=== PATIENT | female | born 1985 | race Caucasian/White ===

== ENCOUNTER 2017-08-10 11:05 | Emergency (ER) | payer OTHER ==
[2017-08-10 12:16] VITALS: BP 115/69
[2017-08-10] MEDS: Ondansetron ODT TAB* 4 MG PO ONE ×2 (12:44→12:45)
--- NOTE | 2017-08-10 13:08 | UC ---
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 B no UTI symptoms HX-c-s, btl - History of Current Complaint Chief Complaint: UCGeneralIllness Stated Complaint: VOMITING,CHILLS,COUGH Time Seen by Provider: 08/10/17 12:28 Hx Obtained From: Patient Hx Last Menstrual Period: 07/20/17 Onset/Duration: Gradual Onset Severity Initially: Moderate Severity Currently: Moderate Pain Intensity: 4 Pain Scale Used: 0-10 Numeric Location: Diffuse Character: Cramping Aggravating Factor(s): Movement Alleviating Factor(s): Vomiting Associated Signs and Symptoms: Positive: Fever, Cough, Nausea, Vomiting, Diarrhea Allergies/Adverse Reactions: Allergies Allergy/AdvReac Type Severity Reaction Status Date / Time No Known Allergies Allergy Verified 08/10/17 12:10 PMH/Surg Hx/FS Hx/Imm Hx Previously Healthy: Yes - Surgical History Surgical History: Yes Surgery Procedure, Year, and Place: 2007. 2014. OVARIAN CYST REMOVAL AND D&C - Family History Known Family History: Negative: Cardiac Disease, Hypertension, Diabetes - Social History Alcohol Use: None Substance Use Type: None Smoking Status (MU): Never Smoked Tobacco - Immunization History Most Recent Influenza Vaccination: 2013 Review of Systems Constitutional: Fever, Chills Skin: Negative Eyes: Negative ENT: Negative Respiratory: Cough Cardiovascular: Negative Gastrointestinal: Abdominal Pain, Vomiting, Diarrhea Genitourinary: Negative Motor: Negative Neurovascular: Negative Musculoskeletal: Negative Neurological: Negative Psychological: Negative Is Patient Immunocompromised?: No All Other Systems Reviewed And Are Negative: Yes Physical Exam Triage Information Reviewed: Yes Appearance: Well-Appearing, No Pain Distress, Well-Nourished Vital Signs: Initial Vital Signs Temp 97.7 F 08/10/17 12:11 Pulse 81 08/10/17 12:11 Resp 14 08/10/17 12:11 BP 115/69 08/10/17 12:11 Pulse Ox 97 08/10/17 12:11 Vital Signs Reviewed: Yes Eyes: Positive: Conjunctiva Clear ENT: Positive: Pharynx normal, Uvula midline. Negative: Nasal congestion, Nasal drainage, Tonsillar swelling, Tonsillar exudate Neck: Positive: Supple, Nontender, No Lymphadenopathy Respiratory: Positive: Lungs clear, Normal breath sounds, No respiratory distress, No accessory muscle use Cardiovascular: Positive: RRR, No Murmur, Pulses Normal Abdomen Description: Positive: Nontender, Soft Neurological: Positive: Alert Psychological Exam: Normal Skin Exam: Normal Abd Pain Female Course/Dx - Course Course Of Treatment: flu (-) - Differential Dx/Diagnosis Provider Diagnoses: acute gastroenteritis Discharge - Discharge Plan Condition: Stable Disposition: HOME Prescriptions: Ondansetron TAB* [Zofran Tab*] 4 mg PO Q6H PRN #10 tab PRN Reason: Nausea Patient Education Materials: Gastroenteritis (ED) Forms: *Work Release Referrals: No Primary Care Phys,NOPCP [Primary Care Provider] - Additional Instructions: immodium AD zofran as directed to er if not improving later today or tomorrow bring in stool for studies
== END 2017-08-10 13:24 | disposition home or self-care (01) ==
LOC: UCEAST 11:05
DX: K52.9 Noninfective gastroenteritis and colitis, unspecified (principal); R50.9 Fever, unspecified; R05 Cough
CPT/HCPCS: 87502; 99212; A9270-GY; G0463

== ENCOUNTER 2018-12-20 07:36 | Emergency (ER) | payer OTHER ==
[2018-12-20 07:49] VITALS: BP 127/77
--- NOTE | 2018-12-20 08:34 | UC ---
Back Pain HPI - HPI Summary HPI Summary: 33-year-old female who slipped and fell onto her back on Thursday, 2 days ago injuring her upper thoracic spine and mid thoracic spine. She denies any numbness or tingling in her extremities. She denies any saddle anesthesia. She did not hit her head and she denies neck pain. - History of Current Complaint Chief Complaint: UCBackPain Stated Complaint: BACK PAIN Time Seen by Provider: 12/20/18 08:34 Hx Obtained From: Patient Hx Last Menstrual Period: 12/02/18 ?: No Onset/Duration: Sudden Onset Timing: Constant Severity Initially: Moderate Severity Currently: Moderate Pain Intensity: 9 Back Pain: Is Discrete @ Character: Sharp, Aching - Upper thoracic spine and mid thoracic spine. Aggravating Factor(s): Movement, Bending Alleviating Factor(s): Nothing Associated Signs And Symptoms: Negative: Swelling, Redness, Bruising, Fever, Weakness, Numbness, Tingling, Bladder Incontinence, Bowel Incontinence - Allergies/Home Medications Allergies/Adverse Reactions: Allergies Allergy/AdvReac Type Severity Reaction Status Date / Time No Known Allergies Allergy Verified 12/20/18 07:49 Home Medications: Home Medications Acetaminophen [Acetaminophen Extra Strength] 1,000 mg PO ONCE PRN 12/20/18 [ History Confirmed 12/20/18] PMH/Surg Hx/FS Hx/Imm Hx Previously Healthy: Yes - Surgical History Surgical History: Yes Surgery Procedure, Year, and Place: 2007. 2014. OVARIAN CYST REMOVAL AND D&C. tubal ligation - Family History Known Family History: Negative: Cardiac Disease, Hypertension, Diabetes - Social History Alcohol Use: None Substance Use Type: None Smoking Status (MU): Never Smoked Tobacco - Immunization History Most Recent Influenza Vaccination: 2013 Review of Systems All Other Systems Reviewed And Are Negative: Yes Neurovascular: Positive: Negative Musculoskeletal: Positive: Other: - Mid and upper back pain, mostly with bending forward. Neurological: Positive: Negative Psychological: Positive: Negative Is Patient Immunocompromised?: No Physical Exam Triage Information Reviewed: Yes Appearance: Well-Appearing, No Pain Distress, Well-Nourished Vital Signs: Initial Vital Signs Temp 97.2 F 12/20/18 07:43 Pulse 88 12/20/18 07:43 Resp 20 12/20/18 07:43 BP 127/77 12/20/18 07:43 Pulse Ox 96 12/20/18 07:43 Vital Signs Reviewed: Yes Neck: Positive: Supple, Nontender, No Lymphadenopathy - C-spine nontender on palpation Respiratory: Positive: Chest non-tender, Lungs clear, Normal breath sounds, No respiratory distress, No accessory muscle use Cardiovascular: Positive: RRR, No Murmur, Pulses Normal, Brisk Capillary Refill Musculoskeletal: Positive: Strength Intact, ROM Intact, Other: - Pain on palpation to the upper thoracic and mid thoracic spine, no erythema, bruising, swelling or deformity is noted. Reflexes +2 at the knee. Neurological: Positive: Alert, Muscle Tone Normal - Negative straight leg raise , good peripheral pulses neuro sensation and capillary refill. Psychological Exam: Normal Skin Exam: Normal Back Pain Course/Dx - Course Course Of Treatment: After consultation with Dr. Gunderson a CT thoracic spine without contrast is done. CT Thoracic Spine: FINDINGS: SPINAL CANAL: Evaluation of the central canal is limited on CT technique; however, there is no obvious canalicular mass or epidural hemorrhage. ALIGNMENT: The alignment is normal. VERTEBRAL BODIES: The vertebral bodies are preserved in height. There is multilevel anterolateral marginal osteophyte formation. There is no acute displaced fracture JOINTS: There is no subluxation or dislocation. MUSCULATURE: Normal INTERVERTEBRAL DISCS: There is mild diffuse loss of intervertebral disc height throughout the spine. AXIAL IMAGES: There is no osseous central canal stenosis or neuroforaminal narrowing. SOFT TISSUES: The visualized soft tissues of the chest and abdomen are unremarkable. OTHER: None IMPRESSION: 1. MILD DEGENERATIVE DISC DISEASE. 2. THE VERTEBRAL BODIES ARE PRESERVED IN HEIGHT. NO ACUTE OSSEOUS INJURY TO THE THORACIC SPINE. Patient has been comfortable here. She wants to return to work tomorrow. She is to avoid lifting and any other movement causes pain. I'm giving her prescription for Motrin to take with a follow-up at the [facility] no improvement in 3 or 4 days. - Differential Dx/Diagnosis Provider Diagnosis: Back pain Discharge - Sign-Out/Discharge Documenting (check all that apply): Patient Departure All imaging exams completed and their final reports reviewed: Yes - Discharge Plan Condition: Fair Disposition: HOME Prescriptions: Ibuprofen TAB* [Motrin TAB* 600 MG] 600 mg PO Q8H PRN #20 tab PRN Reason: Pain Patient Education Materials: Back Pain (ED) Forms: *Work Release Referrals: [facility] [employer] [Outside] No Primary Care Phys,NOPCP [Primary Care Provider] - Additional Instructions: Avoid movements that cause pain, ice or heat to the sore area, take the Motrin with food, follow-up at the [facility] if no improvement in 3 or 4 days. - Billing Disposition and Condition Condition: FAIR Disposition: Home
== END 2018-12-20 09:30 | disposition home or self-care (01) ==
LOC: UCEAST 07:36
DX: M54.6 Pain in thoracic spine (principal)
CPT/HCPCS: 72128; 81003; 84702; 99212; G0463

== ENCOUNTER 2019-06-19 12:25 | Emergency (ER) | payer OTHER ==
[2019-06-19 12:58] VITALS: BP 128/86
--- NOTE | 2019-06-19 13:17 | UC ---
Throat Pain/Nasal Gael HPI - HPI Summary HPI Summary: 3 days of worsening sinus pain cough, congestion - History of Current Complaint Chief Complaint: UCRespiratory Stated Complaint: URI Time Seen by Provider: 06/19/19 13:06 Hx Obtained From: Patient Hx Last Menstrual Period: <1 week ago ?: No Onset/Duration: Sudden Onset, Lasting Days - 3 Pain Intensity: 8 Pain Scale Used: 0-10 Numeric Cough: Nonproductive Associated Signs & Symptoms: Positive: Sinus Discomfort, Fever - Allergies/Home Medications Allergies/Adverse Reactions: Allergies Allergy/AdvReac Type Severity Reaction Status Date / Time No Known Allergies Allergy Verified 06/19/19 12:58 Home Medications: Home Medications Aspirin/Acetaminophen/Caffeine [Excedrin Extra Strength Caplet] 2 each PO PRN [History] D-Methorphan/PE/Acetaminophen [Vicks Dayquil Liquid] 1 liq PO PRN 06/19/19 [ History] PMH/Surg Hx/FS Hx/Imm Hx Previously Healthy: Yes - Surgical History Surgical History: Yes Surgery Procedure, Year, and Place: 2007. 2014. OVARIAN CYST REMOVAL AND D&C. tubal ligation - Family History Known Family History: Negative: Cardiac Disease, Hypertension, Diabetes - Social History Occupation: Employed Full-time Lives: With Family Alcohol Use: None Substance Use Type: None Smoking Status (MU): Never Smoked Tobacco - Immunization History Most Recent Influenza Vaccination: 2013 Review of Systems All Other Systems Reviewed And Are Negative: Yes Constitutional: Positive: Chills, Fatigue Skin: Positive: Negative Eyes: Positive: Negative ENT: Positive: Sore Throat, Ear Ache, Nasal Discharge, Sinus Congestion Respiratory: Positive: Negative Cardiovascular: Positive: Negative Gastrointestinal: Positive: Negative Genitourinary: Positive: Negative Motor: Positive: Negative Neurovascular: Positive: Negative Musculoskeletal: Positive: Negative Neurological: Positive: Negative Psychological: Positive: Negative Is Patient Immunocompromised?: No Physical Exam Triage Information Reviewed: Yes Appearance: Well-Appearing, No Pain Distress, Well-Nourished Vital Signs: Initial Vital Signs Temp 96.4 F 06/19/19 12:54 Pulse 97 06/19/19 12:54 Resp 18 06/19/19 12:54 BP 128/86 06/19/19 12:54 Pulse Ox 100 06/19/19 12:54 Vital Signs Reviewed: Yes Eye Exam: Normal Eyes: Positive: Conjunctiva Clear ENT Exam: Normal ENT: Positive: Normal ENT inspection, Hearing grossly normal, Pharynx normal, TMs normal, Sinus tenderness, Uvula midline. Negative: Nasal congestion, Tonsillar swelling, Trismus, Muffled voice, Hoarse voice, Dental tenderness Dental Exam: Normal Neck exam: Normal Neck: Positive: Supple, Nontender Respiratory Exam: Normal Respiratory: Positive: Chest non-tender, Lungs clear, Normal breath sounds, No respiratory distress, No accessory muscle use Cardiovascular Exam: Normal Cardiovascular: Positive: RRR, No Murmur, Pulses Normal, Brisk Capillary Refill Musculoskeletal Exam: Normal Musculoskeletal: Positive: Strength Intact, ROM Intact, No Edema Neurological Exam: Normal Neurological: Positive: Alert, Muscle Tone Normal Psychological Exam: Normal Skin Exam: Normal Throat Pain/Nasal Course/Dx - Course Course Of Treatment: patient understands this is likely viral and she should not take antibiotics unless symptoms worsen or fail to resolve in in the 3-5 days - Differential Dx/Diagnosis Provider Diagnosis: Sinusitis Discharge ED - Sign-Out/Discharge Documenting (check all that apply): Patient Departure All imaging exams completed and their final reports reviewed: No Studies - Discharge Plan Condition: Stable Disposition: HOME Prescriptions: Amoxicillin/Clavulanate TAB* [Augmentin TAB 875*] 875 mg PO BID #20 tab Fluticasone NASAL SPRAY 50MCG* [Flonase NASAL SPRAY 50MCG*] 2 spray BOTH NARES DAILY #1 btl Patient Education Materials: Sinusitis (ED), How to Use Nasal [place] (ED) Referrals: [facility] [Outside] - If Needed - Billing Disposition and Condition Condition: STABLE Disposition: Home - Attestation Statements Provider Attestation: I was available for consult. This patient was seen by the [facility]ONNA. The patient was not presented to , seen by or examined by de -Jaycob Patel MD
== END 2019-06-19 13:25 | disposition home or self-care (01) ==
LOC: UCEAST 12:25
DX: J34.89 Other specified disorders of nose and nasal sinuses (principal); J32.9 Chronic sinusitis, unspecified
CPT/HCPCS: 99212; G0463